=== PATIENT | male | born 1935 | race Caucasian/White ===

== ENCOUNTER 2017-01-24 09:02 | Emergency (ER) | payer OTHER, MEDICAID ==
[~2017-01-24] VITALS: Ht 172.7 cm; Wt 79.4 kg
[2017-01-24] MEDS ORDERED: HYDR-4663 PO (09:50)
[2017-01-24] MEDS ORDERED: TRAZ50TA2 PO (09:50)
[2017-01-24] MEDS ORDERED: ATOR10TA PO (09:50)
[2017-01-24 09:59] LABS: Basophils # (auto) 0 uL; Basophils % (auto) 0.1 % (0.0-2.0); CONDITION Y; Eosinophils # (auto) 0.4 uL; Eosinophils % (auto) 5.1 % (0.0-7.0); Hematocrit 42.7 % (41.0-53.0); Hemoglobin 14.2 g/dL (13.5-17.5); Lymphocytes # (auto) 1.3 uL; Lymphocytes % (auto) 15.8 % (10.0-50.0); Mean Corpuscular Hemoglobin 30.2 pg (28.0-32.0); Mean Corpuscular Hgb Conc. 33.3 g/dL (32.0-36.0); Mean Corpuscular Volume 90.7 fL (80.0-100.0); Mean Platelet Volume 7.4 fL (7.4-10.4); Monocytes # (auto) 0.6 uL; Monocytes % (auto) 7.2 % (0.0-12.0); Neutrophils # (auto) 5.9 uL; Neutrophils % (auto) 71.8 % (37.0-80.0); Platelet Count (auto) 375 10^3/uL (140-450); Red Cell Distribution Width 14.5 % (11.6-16.0); White Blood Cell 8.2 10^3/uL (4.4-10.8)
[2017-01-24 10:18] LABS: Albumin 3.7 g/dL (3.4-5.0); Alkaline Phosphatase 98 U/L (45-117); Anion Gap 7 (5-15); Aspartate Aminotransferase 10 U/L (15-37); Bilirubin, Total 1.2 mg/dL (0.2-1.0); Blood Urea Nitrogen 20 mg/dL (7-18); Calcium 9.3 mg/dL (8.5-10.1); Carbon Dioxide 28 mmol/L (21-32); Chloride 105 mmol/L (98-107); GFR African American 103 mL/min; GFR Non-African American 85 mL/min; Glucose 150 mg/dL (74-106); Magnesium 2.6 mg/dL (1.6-2.6); Potassium 3.9 mmol/L (3.5-5.1); Sodium 140 mmol/L (136-145); Total Protein 7.4 g/dL (6.4-8.2)
[2017-01-24] MEDS ORDERED: cefTRIAXone 1GM/50ML D5W 50 ML IV ONE (10:30)
[2017-01-24] MEDS ORDERED: AZITHROMYCIN 500MG/D5W 250ML 250 ML IV ONE (10:30)
[2017-01-24 10:38] LABS: B-Type Natriuretic Peptide 17.44 pg/mL (0-100)
[2017-01-24 10:45] LABS: Temperature: 23.3 C (20.0-25.0)
[2017-01-24 11:05] LABS: Urine Bilirubin Negative (Negative); Urine Blood Negative /uL (Negative); Urine Color Yellow (Yellow); Urine Glucose Normal (Normal); Urine Ketone Negative (Negative); Urine Mucus FEW (None Seen); Urine Nitrite Negative (Negative); Urine RBC 1 /hpf (0 - 3); Urine Squamous Epithelial Cell FEW /hpf (<5)
[2017-01-24] MEDS ORDERED: methylPREDNISolone SOD SUCC 125 MG/2 ML VL IV ONE (12:00)
[2017-01-24 14:21] VITALS: BP 113/70
== END 2017-01-24 15:00 | disposition short-term general hospital (02) ==
LOC: ER 09:02 → EDBD 09:02 → ER 15:00
DX: J18.9 Pneumonia, unspecified organism (principal); R53.1 Weakness; J44.9 Chronic obstructive pulmonary disease, unspecified; E11.9 Type 2 diabetes mellitus without complications; E78.5 Hyperlipidemia, unspecified; I10 Essential (primary) hypertension; Z90.49 Acquired absence of other specified parts of digestive tract
CPT/HCPCS: 36415; 71010; 80053; 81001; 83605; 83735; 83880; 84484; 85025; 93005; 94761; 96365; 96366; 96367; 96375; 99285; J0456; J0696; J2930

== ENCOUNTER 2017-02-06 20:17 | Observation (INO) | payer MEDICAID, OTHER ==
[~2017-02-06] VITALS: Ht 177.8 cm; Wt 77.1 kg
[~2017-02-06 20:17] MED LIST: ATOR10TA PO; HYDR-4663 PO; TRAZ50TA2 PO
[2017-02-06] MEDS ORDERED: methylPREDNISolone SOD SUCC 125 MG/2 ML VL ONE (20:20)
[2017-02-06] MEDS ORDERED: methylPREDNISolone SOD SUCC 125 MG/2 ML VL IV ONE (20:30)
[2017-02-06] MEDS ORDERED: cefTRIAXone 1GM/50ML D5W 50 ML IV ONE (20:45)
[2017-02-06 21:07] LABS: Allen Test Yes; Base Excess 3.2 mmol/L (-2.0-2.0); Blood 02Sat 94.6 % (96-100); Blood COHb 0.3 % (0.5-1.5); Blood MetHb 0.3 % (0.0-1.5); HCO3 28.1 mmol/L (22-26.0); HHb 5.4 % (0.0-5.0); MODE NASAL CANNULA; PCO2 43.8 mmHg (35.0-45.0); PCO2(T) 43.8 mmHg (35.0-45.0); PO2 75.7 mmHg (80.0-100.0); PO2(T) 75.7 mmHg (80.0-100.0); Sample Type Arterial; pH 7.425 (7.350-7.450)
[2017-02-06 21:36] LABS: Basophils # (auto) 0 uL; Basophils % (auto) 0.4 % (0.0-2.0); Eosinophils # (auto) 0.9 uL; Eosinophils % (auto) 9.5 % (0.0-7.0); Hematocrit 40.4 % (41.0-53.0); Hemoglobin 13.8 g/dL (13.5-17.5); Lymphocytes # (auto) 1.6 uL; Lymphocytes % (auto) 16.9 % (10.0-50.0); Mean Corpuscular Hemoglobin 30.7 pg (28.0-32.0); Mean Corpuscular Volume 90.2 fL (80.0-100.0); Mean Platelet Volume 7.5 fL (7.4-10.4); Monocytes # (auto) 0.6 uL; Monocytes % (auto) 6.4 % (0.0-12.0); Neutrophils # (auto) 6.2 uL; Neutrophils % (auto) 66.8 % (37.0-80.0); Platelet Count (auto) 299 10^3/uL (140-450); Red Cell Distribution Width 14.1 % (11.6-16.0); White Blood Cell 9.3 10^3/uL (4.4-10.8)
[2017-02-06 21:43] LABS: B-Type Natriuretic Peptide 26.1 pg/mL (0-100); Temperature: 22.2 C (20.0-25.0)
[2017-02-06 22:03] LABS: Albumin 3.5 g/dL (3.4-5.0); Alkaline Phosphatase 93 U/L (45-117); Anion Gap 8 (5-15); Aspartate Aminotransferase 10 U/L (15-37); BUN/Creatinine Ratio 14.9; Bilirubin, Total 0.9 mg/dL (0.2-1.0); Blood Urea Nitrogen 13 mg/dL (7-18); Carbon Dioxide 29 mmol/L (21-32); Chloride 104 mmol/L (98-107); GFR African American 109 mL/min; GFR Non-African American 90 mL/min; Glucose 166 mg/dL (74-106); Magnesium 2.5 mg/dL (1.6-2.6); Potassium 3.9 mmol/L (3.5-5.1); Sodium 141 mmol/L (136-145)
[2017-02-07 00:39] VITALS: BP 114/74
== END 2017-02-07 20:39 | disposition home or self-care (01) | DRG 192 ==
LOC: EDBD 20:17 → ER 20:20 → OVERFLOW 20:39 → ER 02-07 01:29
PROVIDERS: ADMIT Family Medicine; ATTEND Family Medicine
DX: J44.1 Chronic obstructive pulmonary disease with (acute) exacerbation (principal); I10 Essential (primary) hypertension; Z82.49 Family history of ischemic heart disease and other diseases of the circulatory system; F17.210 Nicotine dependence, cigarettes, uncomplicated
CPT/HCPCS: 36415; 36600; 71010; 80053; 82805; 83605; 83735; 83880; 84484; 85025; 87040; 93005; 96365; 96366; 96375; 99285; G0378; J0696; J2930

== ENCOUNTER 2017-02-15 07:05 | Emergency (ER) | payer OTHER ==
[~2017-02-15] VITALS: Ht 182.9 cm; Wt 86.2 kg
[2017-02-15] MEDS ORDERED: methylPREDNISolone SOD SUCC 125 MG/2 ML VL IV ONE (07:15)
[2017-02-15 07:19] VITALS: BP 134/92
[2017-02-15] MEDS ORDERED: ALBUTEROL SULF 2.5 MG/0.5ML(0.5%) NEB SOLN NEB ONE (07:30)
[2017-02-15] MEDS ORDERED: IPRATROPIUM BROM 0.5 MG/2.5ML INH SOL NEB ONE (07:30)
[2017-02-15 07:39] LABS: Basophils # (auto) 0.1 uL; Basophils % (auto) 0.6 % (0.0-2.0); Eosinophils # (auto) 1.1 uL; Eosinophils % (auto) 12.5 % (0.0-7.0); Hematocrit 43.4 % (41.0-53.0); Hemoglobin 14.5 g/dL (13.5-17.5); Lymphocytes # (auto) 2.1 uL; Lymphocytes % (auto) 23.7 % (10.0-50.0); Mean Corpuscular Hemoglobin 30.2 pg (28.0-32.0); Mean Corpuscular Hgb Conc. 33.4 g/dL (32.0-36.0); Mean Corpuscular Volume 90.5 fL (80.0-100.0); Mean Platelet Volume 7.3 fL (6.9-10.8); Monocytes # (auto) 0.7 uL; Monocytes % (auto) 8.3 % (0.0-12.0); Neutrophils # (auto) 4.8 uL; Neutrophils % (auto) 54.9 % (37.0-80.0); Nucleated Red Blood Cells % 0.1 %; Platelet Count (auto) 312 10^3/uL (140-450); Red Cell Distribution Width 14.2 % (11.8-14.3); White Blood Cell 8.8 10^3/uL (4.4-10.8)
[2017-02-15 07:48] LABS: Allen Test Modified; Base Excess 1.9 mmol/L (-2.0-2.0); Blood 02Sat 98.9 % (96-100); Blood COHb 0.4 % (0.5-1.5); Blood MetHb 0.4 % (0.0-1.5); HHb 1.1 % (0.0-5.0); MODE MASK - BIPAP; O2Hb 98.1 % (94.0-97.0); PCO2 43.8 mmHg (35.0-45.0); PCO2(T) 42.3 mmHg (35.0-45.0); PO2 260.5 mmHg (80.0-100.0); PO2(T) 256.7 mmHg (80.0-100.0); Pressure Support 7; Sample Type Arterial; Spont Vt 650; pH 7.407 (7.350-7.450)
[2017-02-15 07:59] LABS: Albumin 3.6 g/dL (3.4-5.0); Anion Gap 6 (5-15); Aspartate Aminotransferase 15 U/L (15-37); BUN/Creatinine Ratio 14.1; Blood Urea Nitrogen 13 mg/dL (7-18); Calcium 8.4 mg/dL (8.5-10.1); Carbon Dioxide 27 mmol/L (21-32); Chloride 108 mmol/L (98-107); GFR African American 102 mL/min; GFR Non-African American 84 mL/min; Glucose 137 mg/dL (74-106); Magnesium 2.6 mg/dL (1.6-2.6); Potassium 4.3 mmol/L (3.5-5.1); Sodium 141 mmol/L (136-145)
[2017-02-15 08:02] LABS: Alkaline Phosphatase 98 U/L (45-117); Bilirubin, Total 1.4 mg/dL (0.2-1.0); Total Protein 7.2 g/dL (6.4-8.2)
[2017-02-15 08:12] LABS: B-Type Natriuretic Peptide 24.2 pg/mL (0-100)
[2017-02-15 08:17] LABS: Temperature: 23.7 C (20.0-25.0)
[2017-02-15 08:42] LABS: INR 1.05 (0.9-1.15); Partial Thromboplastin Time 26.5 sec (22.64-33.71); Prothrombin Time 11.5 sec (9.37-12.3)
[2017-02-15 11:35] VITALS: BP 125/77
== END 2017-02-15 08:39 | disposition critical access hospital (66) ==
LOC: EDBD 07:05 → ER 07:05
DX: J44.1 Chronic obstructive pulmonary disease with (acute) exacerbation (principal); R06.00 Dyspnea, unspecified; I10 Essential (primary) hypertension; E11.9 Type 2 diabetes mellitus without complications; E78.5 Hyperlipidemia, unspecified; Z87.891 Personal history of nicotine dependence
CPT/HCPCS: 36415; 36600; 71010; 80053; 82805; 83605; 83735; 83880; 84484; 85025; 85610; 85730; 87040; 93005; 94640; 94660; 96374; 99291

== ENCOUNTER 2017-03-11 02:53 | Emergency (ER) | payer OTHER ==
[~2017-03-11] VITALS: Ht 172.7 cm; Wt 70.3 kg
[2017-03-11] MEDS ORDERED: IPRATROPIUM BROM 0.5 MG/2.5ML INH SOL NEB ONE (04:00)
[2017-03-11] MEDS ORDERED: ALBUTEROL SULF 2.5 MG/0.5ML(0.5%) NEB SOLN NEB ONE (04:00)
[2017-03-11] MEDS ORDERED: methylPREDNISolone SOD SUCC 125 MG/2 ML VL IV ONE (04:00)
[2017-03-11 04:25] LABS: Basophils # (auto) 0 uL; Basophils % (auto) 0.4 % (0.0-2.0); Eosinophils # (auto) 0.8 uL; Eosinophils % (auto) 10.1 % (0.0-7.0); Hematocrit 41.1 % (41.0-53.0); Hemoglobin 13.8 g/dL (13.5-17.5); Lymphocytes # (auto) 1.6 uL; Lymphocytes % (auto) 19.6 % (10.0-50.0); Mean Corpuscular Hemoglobin 30.3 pg (28.0-32.0); Mean Corpuscular Hgb Conc. 33.7 g/dL (32.0-36.0); Mean Corpuscular Volume 89.9 fL (80.0-100.0); Mean Platelet Volume 7.5 fL (6.9-10.8); Monocytes # (auto) 0.7 uL; Monocytes % (auto) 8.5 % (0.0-12.0); Neutrophils # (auto) 4.9 uL; Neutrophils % (auto) 61.4 % (37.0-80.0); Nucleated Red Blood Cells % 0.1 %; Platelet Count (auto) 335 10^3/uL (140-450); Red Cell Distribution Width 13.8 % (11.8-14.3); White Blood Cell 7.9 10^3/uL (4.4-10.8)
[2017-03-11 04:39] LABS: Albumin 3.6 g/dL (3.4-5.0); Anion Gap 8 (5-15); Aspartate Aminotransferase 13 U/L (15-37); BUN/Creatinine Ratio 25.3; Blood Urea Nitrogen 24 mg/dL (7-18); Calcium 8.9 mg/dL (8.5-10.1); Carbon Dioxide 28 mmol/L (21-32); Chloride 109 mmol/L (98-107); GFR African American 98 mL/min; GFR Non-African American 81 mL/min; Glucose 132 mg/dL (74-106); Magnesium 2.3 mg/dL (1.6-2.6); Potassium 3.6 mmol/L (3.5-5.1); Sodium 145 mmol/L (136-145)
[2017-03-11 04:42] LABS: Alkaline Phosphatase 97 U/L (45-117); Bilirubin, Total 0.9 mg/dL (0.2-1.0); INR 1.05 (0.9-1.15); Partial Thromboplastin Time 26.9 sec (22.64-33.71); Prothrombin Time 11.4 sec (9.37-12.3); Total Protein 6.9 g/dL (6.4-8.2)
[2017-03-11 05:17] LABS: B-Type Natriuretic Peptide 18.17 pg/mL (0-100)
[2017-03-11 05:24] LABS: Temperature: 23.3 C (20.0-25.0)
[2017-03-11] MEDS ORDERED: IOHEXOL 350 MG/ML 100ML IJ ONE (07:59)
[2017-03-11 09:00] VITALS: BP 147/85
== END 2017-03-11 09:07 | disposition short-term general hospital (02) ==
LOC: EDBD 02:53 → ER 02:55
DX: J44.1 Chronic obstructive pulmonary disease with (acute) exacerbation (principal); R06.03 Acute respiratory distress; R79.1 Abnormal coagulation profile; E11.9 Type 2 diabetes mellitus without complications; E78.5 Hyperlipidemia, unspecified; I10 Essential (primary) hypertension; Z87.891 Personal history of nicotine dependence
CPT/HCPCS: 36415; 71010; 71275; 80053; 83735; 83880; 84443; 84484; 85025; 85379; 85610; 85730; 93005; 94640; 96374; 99291; J2930; Q9967

== ENCOUNTER 2018-03-09 07:36 | Emergency (ER) | payer OTHER, MEDICAID ==
[~2018-03-09] VITALS: Ht 170.2 cm; Wt 63.5 kg
[~2018-03-09 07:36] MED LIST changes: -HYDR-4663 PO; +HYDR-4683 PO
[2018-03-09] MEDS ORDERED: IPRATROPIUM BROM 0.5 MG/2.5ML INH SOL NEB ONE (08:15)
[2018-03-09] MEDS ORDERED: methylPREDNISolone SOD SUCC 125 MG/2 ML VL IV ONE (08:15)
[2018-03-09] MEDS ORDERED: ALBUTEROL SULF 2.5 MG/0.5ML(0.5%) NEB SOLN NEB ONE (08:15)
[2018-03-09 08:39] LABS: Hematocrit 43.2 % (41.0-53.0); Hemoglobin 14.1 g/dL (13.5-17.5); Mean Corpuscular Hemoglobin 29.3 pg (28.0-32.0); Mean Corpuscular Hgb Conc. 32.6 g/dL (32.0-36.0); Platelet Count (auto) 307 10^3/uL (140-450); Red Cell Distribution Width 14.5 % (11.8-14.3); White Blood Cell 7.5 10^3/uL (4.4-10.8)
[2018-03-09 09:01] LABS: Albumin 3.6 g/dL (3.4-5.0); Anion Gap 9 (5-15); BUN/Creatinine Ratio 23.2; Blood Urea Nitrogen 22 mg/dL (7-18); Calcium 8.8 mg/dL (8.5-10.1); Carbon Dioxide 27 mmol/L (21-32); Chloride 108 mmol/L (98-107); GFR African American 98 mL/min; GFR Non-African American 81 mL/min; Glucose 143 mg/dL (74-106); Potassium 3.7 mmol/L (3.5-5.1); Sodium 144 mmol/L (136-145)
[2018-03-09 09:05] LABS: Basophils % (manual) 0 (0.0-2.0); Blast Cells 0; Metamyelocytes % 0; Myelocytes % 0; Promyelocytes % 0; Reactive Lymphocytes 0
[2018-03-09 09:06] LABS: Alanine Aminotransferase 19 U/L (16-61); Alkaline Phosphatase 91 U/L (45-117); Aspartate Aminotransferase 13 U/L (15-37); Total Protein 7.4 g/dL (6.4-8.2)
[2018-03-09 09:17] LABS: Band Neutrophils % (manual) 1; Eosinophils % (manual) 15 (0-7); Lymphocytes % (manual) 25 (10.0-50.0); Monocytes % (manual) 6 (0-12)
[2018-03-09] MEDS ORDERED: HYDROcodone-ACET 5/325MG TAB PO ONE (10:00)
[2018-03-09 13:43] VITALS: BP 122/79
== END 2018-03-09 14:55 | disposition short-term general hospital (02) ==
LOC: ER 07:36
DX: J44.1 Chronic obstructive pulmonary disease with (acute) exacerbation (principal); E11.9 Type 2 diabetes mellitus without complications; E78.5 Hyperlipidemia, unspecified; I10 Essential (primary) hypertension; Z90.49 Acquired absence of other specified parts of digestive tract; Z87.891 Personal history of nicotine dependence
CPT/HCPCS: 36415; 71045; 80053; 84484; 85007; 85027; 93005; 94640; 96374; 99291; J2930; J7611; J7644

== ENCOUNTER 2018-05-02 18:02 | Inpatient (IN) | payer OTHER, MEDICAID ==
[~2018-05-02] VITALS: Ht 175.3 cm; Wt 73.7 kg
[2018-05-02] MEDS ORDERED: SODIUM CHLORIDE 0.9% 1,000 ML IV ONE ×2 (18:17→20:45)
[2018-05-02] MEDS ORDERED: IPRATROPIUM BROM 0.5 MG/2.5ML INH SOL HHN ONE (18:30)
[2018-05-02] MEDS ORDERED: methylPREDNISolone SOD SUCC 125 MG/2 ML VL IV ONE (18:30)
[2018-05-02] MEDS ORDERED: ALBUTEROL SULF 2.5 MG/0.5ML(0.5%) NEB SOLN HHN ONE (18:30)
[2018-05-02 19:36] LABS: Basophils # (auto) 0 uL; Basophils % (auto) 0.3 % (0.0-2.0); Eosinophils # (auto) 0.9 uL; Hematocrit 42.1 % (41.0-53.0); Hemoglobin 13.8 g/dL (13.5-17.5); Lymphocytes # (auto) 0.9 uL; Lymphocytes % (auto) 11.4 % (10.0-50.0); Mean Corpuscular Hemoglobin 29.5 pg (28.0-32.0); Mean Corpuscular Hgb Conc. 32.8 g/dL (32.0-36.0); Mean Corpuscular Volume 90.2 fL (80.0-100.0); Monocytes # (auto) 0.6 uL; Monocytes % (auto) 7.4 % (0.0-12.0); Neutrophils # (auto) 5.8 uL; Neutrophils % (auto) 69.9 % (37.0-80.0); Platelet Count (auto) 307 10^3/uL (140-450); Red Blood Cells 4.67 10^6/uL (4.5-5.90); Red Cell Distribution Width 14.3 % (11.8-14.3); White Blood Cell 8.3 10^3/uL (4.4-10.8)
[2018-05-02 19:47] LABS: Lactic Acid w/Reflex 2.1 mmol/L (0.4-2.0)
[2018-05-02 19:53] LABS: Alanine Aminotransferase 21 U/L (16-61); Albumin 3.5 g/dL (3.4-5.0); Anion Gap 5 (5-15); Aspartate Aminotransferase 13 U/L (15-37); BUN/Creatinine Ratio 18.9; Blood Urea Nitrogen 17 mg/dL (7-18); Calcium 8.8 mg/dL (8.5-10.1); Carbon Dioxide 29 mmol/L (21-32); Chloride 107 mmol/L (98-107); GFR African American 104 mL/min; GFR Non-African American 86 mL/min; Glucose 164 mg/dL (74-106); Potassium 4.4 mmol/L (3.5-5.1); Sodium 141 mmol/L (136-145)
[2018-05-02 19:57] LABS: Alkaline Phosphatase 102 U/L (45-117); Bilirubin, Total 0.8 mg/dL (0.2-1.0); Total Protein 7.1 g/dL (6.4-8.2)
[2018-05-03] VITALS (8 sets, daily range): BP systolic 108–140; BP diastolic 58–79
[2018-05-03] MEDS ORDERED: TEMAZEPAM 15 MG CAP PO PRN (02:15)
[2018-05-03] MEDS ORDERED: HYDROcodone-ACET 5/325MG TAB PO PRN (02:15)
[2018-05-03] MEDS ORDERED: ACETAMINOPHEN 325 MG TAB PO PRN (02:15)
[2018-05-03] MEDS ORDERED: NITROGLYCERIN 0.4 MG SL TAB SL PRN (02:15)
[2018-05-03] MEDS ORDERED: DEXTROSE (50%) 50ML SYRG IV PRN (02:15)
[2018-05-03] MEDS ORDERED: ONDANSETRON HCL 4 MG/2 ML VIAL IV PRN (02:15)
[2018-05-03] MEDS ORDERED: MORPHINE SULFATE 4 MG/ML SYR/VIAL IV PRN (02:15)
[2018-05-03] MEDS ORDERED: IOHEXOL 350 MG/ML 100ML IJ ONE (02:42)
[2018-05-03] MEDS: ALBUTEROL SULF 2.5 MG/0.5ML(0.5%) NEB SOLN NEB PRN ×3 (02:46→10:25)
[2018-05-03] MEDS: IPRATROPIUM BROM 0.5 MG/2.5ML INH SOL NEB PRN ×3 (02:46→10:25)
[2018-05-03] MEDS ORDERED: cefTRIAXone 1GM/50ML D5W 50 ML IV ONE (03:00)
[2018-05-03] MEDS: ACCU-CHEK COMFORT CURVE STRIP VI SCH ×4 (06:00→23:54)
[2018-05-03] MEDS: InsuLIN REG 1unit/0.01ml Soln (100units/ml) SC SCH ×4 (07:12→23:58)
[2018-05-03] MEDS: ENOXAPARIN SOD 40 MG/0.4 ML SYRINGE SC SCH (10:13)
[2018-05-03] MEDS: FAMOTIDINE 20 MG TAB PO SCH ×2 (10:13→21:29)
[2018-05-03] MEDS ORDERED: AZITHROMYCIN 500MG/ 250ML 250 ML IV ONE (11:45)
[2018-05-03] MEDS: methylPREDNISolone SOD SUCC 40 MG/ML VL IV SCH ×3 (13:01→23:53)
[2018-05-03] MEDS: ALBUTEROL SULF 2.5 MG/0.5ML(0.5%) NEB SOLN NEB SCH (18:30)
[2018-05-03] MEDS: IPRATROPIUM BROM 0.5 MG/2.5ML INH SOL NEB SCH (18:30)
[2018-05-03] MEDS ORDERED: MONTELUKAST SODIUM 10 MG TAB PO SCH (22:00)
[2018-05-03] MEDS ORDERED: ATORVASTATIN 20 MG TAB PO SCH (22:00)
[2018-05-04] MEDS: IPRATROPIUM BROM 0.5 MG/2.5ML INH SOL NEB SCH ×3 (01:58→12:04)
[2018-05-04] MEDS: ALBUTEROL SULF 2.5 MG/0.5ML(0.5%) NEB SOLN NEB SCH ×3 (01:58→12:04)
[2018-05-04] MEDS ORDERED: cefTRIAXone 1GM/50ML D5W 50 ML IV SCH (03:00)
[2018-05-04 05:09] VITALS: BP 104/52
[2018-05-04] MEDS: methylPREDNISolone SOD SUCC 40 MG/ML VL IV SCH (06:37)
[2018-05-04] MEDS: InsuLIN REG 1unit/0.01ml Soln (100units/ml) SC SCH (06:38)
[2018-05-04] MEDS: ACCU-CHEK COMFORT CURVE STRIP VI SCH (06:38)
[2018-05-04 07:03] LABS: Basophils # (auto) 0 uL; Basophils % (auto) 0.1 % (0.0-2.0); Eosinophils # (auto) 0 uL; Hematocrit 38.6 % (41.0-53.0); Hemoglobin 12.7 g/dL (13.5-17.5); Lymphocytes # (auto) 0.6 uL; Mean Corpuscular Hemoglobin 29.5 pg (28.0-32.0); Mean Corpuscular Volume 89.4 fL (80.0-100.0); Monocytes # (auto) 0.2 uL; Monocytes % (auto) 1.9 % (0.0-12.0); Neutrophils # (auto) 10.9 uL; Platelet Count (auto) 311 10^3/uL (140-450); Red Blood Cells 4.32 10^6/uL (4.5-5.90); Red Cell Distribution Width 13.8 % (11.8-14.3); White Blood Cell 11.7 10^3/uL (4.4-10.8)
[2018-05-04 07:19] LABS: Potassium 4.1 mmol/L (3.5-5.1)
[2018-05-04 07:27] LABS: Albumin 3.1 g/dL (3.4-5.0); BUN/Creatinine Ratio 26.6; Bilirubin, Total 0.7 mg/dL (0.2-1.0); Total Protein 6.3 g/dL (6.4-8.2)
[2018-05-04 08:31] VITALS: BP 132/71
[2018-05-04] MEDS ORDERED: LEVOFLOXACIN 500 MG TAB PO SCH (10:00)
[2018-05-04] MEDS ORDERED: AZITHROMYCIN 500MG/ 250ML 250 ML IV SCH (10:00)
[2018-05-04] MEDS ORDERED: Ensure Enlive Chocolate 8oz Bottle PO SCH (10:00)
[2018-05-04] MEDS: ENOXAPARIN SOD 40 MG/0.4 ML SYRINGE SC SCH (10:03)
[2018-05-04] MEDS: FAMOTIDINE 20 MG TAB PO SCH (10:03)
[2018-05-04 12:20] VITALS: BP 130/77
[2018-05-04 13:26] VITALS: BP 132/71
[2018-05-04] MEDS ORDERED: AZIT500T4 PO (13:35)
[2018-05-04] MEDS ORDERED: PRED1PAK10 PO (13:35)
== END 2018-05-04 14:35 | disposition home or self-care (01) | DRG 189 ==
LOC: EDUNIT# 18:02 → EDBD 18:02 → ER 18:11 → TELE 05-03 02:09 → TELE-WESTW 05-03 04:00
PROVIDERS: ADMIT Nurse Practitioner; ATTEND Family Medicine
PROC: 5A09357 Assistance with Respiratory Ventilation, Less than 24 Consecutive Hours, Continuous Positive Airway Pressure (ICD-10-PCS; principal; 2018-05-03)
DX: J96.21 Acute and chronic respiratory failure with hypoxia (principal); J44.1 Chronic obstructive pulmonary disease with (acute) exacerbation; J44.0 Chronic obstructive pulmonary disease with (acute) lower respiratory infection; E11.9 Type 2 diabetes mellitus without complications; E78.00 Pure hypercholesterolemia, unspecified; E78.5 Hyperlipidemia, unspecified; F41.9 Anxiety disorder, unspecified; I10 Essential (primary) hypertension; J01.00 Acute maxillary sinusitis, unspecified; J20.9 Acute bronchitis, unspecified; Z87.891 Personal history of nicotine dependence; Z99.81 Dependence on supplemental oxygen; Z90.49 Acquired absence of other specified parts of digestive tract
CPT/HCPCS: 36415; 36600; 71045; 71275; 80053; 82805; 82962; 83605; 83880; 84484; 85025; 85379; 87040; 94640; 94644; 94660; 94761; 96361; 96365; 96367; 96375; 99291; G0378; J1815

== ENCOUNTER 2018-08-23 08:38 | Inpatient (IN) | payer OTHER, MEDICAID ==
[~2018-08-23] VITALS: Ht 172.7 cm; Wt 66.5 kg
[~2018-08-23 08:38] MED LIST changes: +AZIT500T4 PO; +PRED1PAK10 PO
[2018-08-23] MEDS ORDERED: SODIUM CHLORIDE 0.9% 1,000 ML IV ONE (10:17)
[2018-08-23] MEDS ORDERED: IPRATROPIUM BROM 0.5 MG/2.5ML INH SOL NEB ONE ×2 (10:30→17:45)
[2018-08-23] MEDS ORDERED: ALBUTEROL SULF 2.5 MG/0.5ML(0.5%) NEB SOLN NEB ONE ×2 (10:30→17:45)
[2018-08-23] MEDS ORDERED: methylPREDNISolone SOD SUCC 125 MG/2 ML VL IV ONE (10:30)
[2018-08-23 10:31] LABS: Basophils # (auto) 0 uL; Basophils % (auto) 0.4 % (0.0-2.0); Eosinophils # (auto) 0.9 uL; Eosinophils % (auto) 13.2 % (0.0-7.0); Hematocrit 43.1 % (41.0-53.0); Lymphocytes # (auto) 1.1 uL; Lymphocytes % (auto) 16.1 % (10.0-50.0); Mean Corpuscular Hemoglobin 29.2 pg (28.0-32.0); Mean Corpuscular Hgb Conc. 32.6 g/dL (32.0-36.0); Mean Corpuscular Volume 89.6 fL (80.0-100.0); Monocytes # (auto) 0.6 uL; Neutrophils % (auto) 61.3 % (37.0-80.0); Platelet Count (auto) 283 10^3/uL (140-450); Red Blood Cells 4.81 10^6/uL (4.5-5.90); Red Cell Distribution Width 14.3 % (11.8-14.3); White Blood Cell 6.5 10^3/uL (4.4-10.8)
[2018-08-23 10:46] LABS: Albumin 3.7 g/dL (3.4-5.0); Calcium 9.4 mg/dL (8.5-10.1); Magnesium 2.4 mg/dL (1.6-2.6); Potassium 3.7 mmol/L (3.5-5.1)
[2018-08-23 10:56] LABS: Bilirubin, Total 1.2 mg/dL (0.2-1.0); Total Protein 7.2 g/dL (6.4-8.2)
[2018-08-23 13:54] LABS: Urine WBC None Seen /hpf (0 - 3)
[2018-08-23 14:30] LABS: Urine Bacteria NONE SEEN /hpf (None Seen); Urine Blood Negative /uL (Negative); Urine Mucus FEW (None Seen); Urine Specific Gravity 1.025 (1.001-1.035)
[2018-08-23] MEDS ORDERED: AZITHROMYCIN 500MG/ 250ML 250 ML IV ONE (17:45)
[2018-08-23] MEDS ORDERED: ACETAMINOPHEN 500 MG TAB PO PRN (20:00)
[2018-08-23] MEDS ORDERED: MORPHINE SULF INJ 2 MG/ML SYRINGE 1ML IV PRN ×2 (20:00)
[2018-08-23] MEDS ORDERED: HYDROcodone-ACET 7.5/325MG TAB PO PRN (20:00)
[2018-08-23] MEDS ORDERED: ONDANSETRON HCL 4 MG/2 ML VIAL IV PRN (20:00)
[2018-08-23] MEDS ORDERED: NITROGLYCERIN 0.4 MG SL TAB SL PRN (20:00)
[2018-08-23 20:44] VITALS: BP 113/64
--- NOTE | 2018-08-23 21:00 | NUR ---
OPENING NOTE RECEIVED PATIENT FROM ER. PATIENT SHOWING NO SIGN OF DISTRESS, SHORTNESS OF BREATH, AND PATIENT DENIES ANY PAIN AT THIS TIME. PATIENT EDUCATED ON PLAN OF CARE FOR THE NIGHT AND PATIENT VERBALIZED UNDERSTANDING. PATIENT HOOKED ONTO 3L NC. BED LOWERED, CALL LIGHT WITHIN REACH, AND PATIENT WILL BE ROUNDED ON EVERY HOUR AND NEEDED.
[2018-08-23 21:30] VITALS: BP 139/69
[2018-08-23] MEDS: methylPREDNISolone SOD SUCC 125 MG/2 ML VL IV SCH (21:41)
[2018-08-23] MEDS: ATORVASTATIN 20 MG TAB PO SCH (21:41)
[2018-08-23 22:00] VITALS: BP 139/69
[2018-08-24] MEDS ORDERED: ALBUAER3 IN (00:11)
[2018-08-24] MEDS ORDERED: FLUT250M2 IN (00:11)
[2018-08-24] MEDS ORDERED: HYDR-392 PO (00:11)
[2018-08-24] MEDS: IPRATROPIUM BROM 0.5 MG/2.5ML INH SOL NEB SCH ×3 (00:22→11:33)
[2018-08-24] MEDS: ALBUTEROL SULF 2.5 MG/0.5ML(0.5%) NEB SOLN NEB SCH ×3 (00:22→11:34)
[2018-08-24] MEDS: BUDESONIDE (INHALATION) 0.5 MG/2 ML NEB NEB SCH ×3 (00:22→19:07)
[2018-08-24 04:58] VITALS: BP 106/64
--- NOTE | 2018-08-24 05:40 | NUR ---
RADIOLOGY AT BEDSIDE FOR CXRP.
[2018-08-24 06:30] LABS: Basophils # (auto) 0 uL; Eosinophils # (auto) 0 uL; Hematocrit 39.9 % (41.0-53.0); Hemoglobin 13.1 g/dL (13.5-17.5); Lymphocytes # (auto) 0.4 uL; Lymphocytes % (auto) 6.8 % (10.0-50.0); Mean Corpuscular Hemoglobin 29.3 pg (28.0-32.0); Mean Corpuscular Hgb Conc. 32.8 g/dL (32.0-36.0); Mean Corpuscular Volume 89.4 fL (80.0-100.0); Monocytes # (auto) 0.1 uL; Monocytes % (auto) 1.5 % (0.0-12.0); Neutrophils # (auto) 4.9 uL; Neutrophils % (auto) 91.7 % (37.0-80.0); Platelet Count (auto) 273 10^3/uL (140-450); Red Blood Cells 4.46 10^6/uL (4.5-5.90); Red Cell Distribution Width 13.9 % (11.8-14.3); White Blood Cell 5.4 10^3/uL (4.4-10.8)
--- NOTE | 2018-08-24 06:34 | NUR ---
MEDICATION TAKEN DOWN TO PHARMACY
[2018-08-24 06:40] LABS: BUN/Creatinine Ratio 23.9
[2018-08-24 09:00] VITALS: BP 116/62
[2018-08-24] MEDS: cefTRIAXone 1GM/50ML D5W 50 ML IV SCH (09:24)
[2018-08-24] MEDS: methylPREDNISolone SOD SUCC 125 MG/2 ML VL IV SCH ×2 (09:50→21:28)
[2018-08-24] MEDS: PANTOPRAZOLE 40 MG/10 ML VIAL IV SCH (09:50)
[2018-08-24] MEDS: AZITHROMYCIN 500MG/ 250ML 250 ML IV SCH (10:00)
--- NOTE | 2018-08-24 12:46 | NUR ---
PER DR RICO, PT DOES NOT WANT TO TRANSFER TO [facility]. SPOKE TO TITO MAZARIEGOS AT [facility] AND INFORMED
[2018-08-24 13:00] VITALS: BP 130/74
--- NOTE | 2018-08-24 13:00 | NUR ---
IV removal IV left AC DC'd with sterile technique, catheter fully intact. Pressure dressing applied to site. Patient tolerated procedure well. Discharged with aftercare instructions per MD. NOTE:
--- NOTE | 2018-08-24 13:05 | NUR ---
IV insertion IV access obtained, via clean sterile technique by inserting 20 gauge catheter at left foreqrm after 1 attempt. IV secured properly. No trauma to site. Patient tolerated procedure well.
[2018-08-24 17:00] VITALS: BP 130/73
--- NOTE | 2018-08-24 20:00 | NUR ---
OPENING NOTE RECEIVED REPORT FROM DAYSHIFT RN. ASSUMING ROLE OF CARE OF PATIENT AT THIS TIME. PATIENT SHOWING NO SIGN OF DISTRESS, SHORTNESS OF BREATH, AND PATIENT DENIES ANY PAIN AT THIS TIME. PATIENT EDUCATED ON PLAN OF CARE FOR THE NIGHT. PATIENT VERBALIZED UNDERSTANDING. BED LOWERED, CALL LIGHT WITHIN REACH, AND PATIENT WILL BE ROUNDED ON EVERY HOUR AND NEEDED.
[2018-08-24] MEDS: ATORVASTATIN 20 MG TAB PO SCH (21:28)
[2018-08-24 22:00] VITALS: BP 132/74
[2018-08-25 05:00] VITALS: BP 128/82
[2018-08-25] MEDS: IPRATROPIUM BROM 0.5 MG/2.5ML INH SOL NEB SCH ×3 (06:15→18:05)
[2018-08-25] MEDS: BUDESONIDE (INHALATION) 0.5 MG/2 ML NEB NEB SCH ×2 (06:15→18:05)
[2018-08-25] MEDS: ALBUTEROL SULF 2.5 MG/0.5ML(0.5%) NEB SOLN NEB SCH ×3 (06:15→18:05)
--- NOTE | 2018-08-25 08:00 | NUR ---
Opening Shift Note Assumed care of patient, awake and alert. No S/S of distress/SOB or pain. Instructed on POC and to call for assist PRN, will continue to monitor for changes Q1hr and PRN.
[2018-08-25 09:00] VITALS: BP 112/67
[2018-08-25] MEDS: PANTOPRAZOLE 40 MG/10 ML VIAL IV SCH (09:51)
[2018-08-25] MEDS: cefTRIAXone 1GM/50ML D5W 50 ML IV SCH (09:51)
[2018-08-25] MEDS: methylPREDNISolone SOD SUCC 125 MG/2 ML VL IV SCH ×2 (09:52→23:23)
[2018-08-25] MEDS: ENOXAPARIN SOD 40 MG/0.4 ML SYRINGE SC SCH (10:35)
[2018-08-25] MEDS: AZITHROMYCIN 500MG/ 250ML 250 ML IV SCH (11:48)
--- NOTE | 2018-08-25 12:03 | NUR ---
RT NOTE: PT C/O HEADACHE ONCE TX WAS OVER. ALL OTHER VITALS STABLE. WILL NOTIFY RN AND PASS ON IN REPORT. WILL CONTINUE TO MONITOR.
[2018-08-25 13:00] VITALS: BP_SYST 120; BP_SYST 130; BP_DIAS 71; BP_DIAS 83
--- NOTE | 2018-08-25 13:08 | NUR ---
CM - RE:PILGER CONTACTED WELFARE VISITOR KIKO REGARDING DOCTOR TRISHA REQUESTING AUTHORIZATION FOR PILGER. LEFT MESSAGE.
--- NOTE | 2018-08-25 14:19 | NUR ---
Nutrition Assessment/consult Notes Please see attached link for complete assessment Est. Needs based on BW [id number] kcal (25-30 kcal/kgBW), 66-79 gms pro (1.0-1.2 gm/kgBW). Will continue to monitor pertinent labs and reassess nutrient need prn. Addendum: 08/25/18 at [address] Amended: Links added.
--- NOTE | 2018-08-25 19:40 | NUR ---
Opening Shift Note Assumed care of patient, awake and alert. No S/S of distress/SOB or pain. Bed in lowest locked position, side rails up x2, call light within reach. Instructed on POC and to call for assist PRN, will continue to monitor for changes Q1hr and PRN.
[2018-08-25 22:00] VITALS: BP 124/74
--- NOTE | 2018-08-25 22:00 | NUR ---
Sleeping Pill Patient requesting sleeping pill, no orders noted at this time. Hospitalist paged, awaiting call back.
[2018-08-25] MEDS: ATORVASTATIN 20 MG TAB PO SCH (23:23)
--- NOTE | 2018-08-25 23:30 | NUR ---
Re: Sleeping Pill Informed patient no orders for sleeping pill and hospitalist had been paged. Patient said, "ah, forget about it then". No s/s of distress. Will continue to monitor.
[2018-08-26 05:00] VITALS: BP 112/66
[2018-08-26] MEDS: IPRATROPIUM BROM 0.5 MG/2.5ML INH SOL NEB SCH ×3 (06:57→18:01)
[2018-08-26] MEDS: BUDESONIDE (INHALATION) 0.5 MG/2 ML NEB NEB SCH ×2 (06:57→18:01)
[2018-08-26] MEDS: ALBUTEROL SULF 2.5 MG/0.5ML(0.5%) NEB SOLN NEB SCH ×3 (06:57→18:01)
--- NOTE | 2018-08-26 07:06 | NUR ---
Closing Note Patient lying in bed, eyes closed, respirations even and unlabored, appears asleep. No s/s of distress. Will continue to monitor.
[2018-08-26 07:09] LABS: Basophils # (auto) 0 uL; Eosinophils # (auto) 0 uL; Hematocrit 38.7 % (41.0-53.0); Hemoglobin 12.9 g/dL (13.5-17.5); Lymphocytes # (auto) 0.4 uL; Lymphocytes % (auto) 4.9 % (10.0-50.0); Mean Corpuscular Hemoglobin 29.3 pg (28.0-32.0); Mean Corpuscular Hgb Conc. 33.2 g/dL (32.0-36.0); Mean Corpuscular Volume 88.1 fL (80.0-100.0); Monocytes # (auto) 0.3 uL; Monocytes % (auto) 3.4 % (0.0-12.0); Neutrophils # (auto) 8.3 uL; Neutrophils % (auto) 91.7 % (37.0-80.0); Platelet Count (auto) 278 10^3/uL (140-450); Red Cell Distribution Width 13.8 % (11.8-14.3); White Blood Cell 9.1 10^3/uL (4.4-10.8)
--- NOTE | 2018-08-26 07:30 | NUR ---
Open Shift Note Received report on patient, awake and lying in bed. Patient shows no signs of distress at this time. Discussed POC with patient. Bed in lowest locked position, side rails up x2, and call light within reach. Will continue to monitor.
[2018-08-26 07:32] LABS: Calcium 8.8 mg/dL (8.5-10.1)
[2018-08-26 08:55] VITALS: BP 125/67
[2018-08-26] MEDS: PANTOPRAZOLE 40 MG/10 ML VIAL IV SCH (09:40)
[2018-08-26] MEDS: cefTRIAXone 1GM/50ML D5W 50 ML IV SCH (09:40)
[2018-08-26] MEDS: ENOXAPARIN SOD 40 MG/0.4 ML SYRINGE SC SCH (09:40)
[2018-08-26] MEDS: AZITHROMYCIN 500MG/ 250ML 250 ML IV SCH (09:41)
[2018-08-26] MEDS: methylPREDNISolone SOD SUCC 125 MG/2 ML VL IV SCH (09:41)
[2018-08-26 13:16] VITALS: BP 137/82
[2018-08-26 17:30] VITALS: BP 119/78
[2018-08-26] MEDS: Ensure Enlive Chocolate 8oz Bottle PO SCH (18:00)
[2018-08-26 18:01] VITALS: BP 119/78
--- NOTE | 2018-08-26 19:08 | NUR ---
End of Shift Endorsed care to NOC nurse. Patient shows no signs of distress at this time. Bed in lowest locked position, side rails up x2, and call light within reach.
[2018-08-26] MEDS: ATORVASTATIN 20 MG TAB PO SCH (21:40)
[2018-08-26 22:00] VITALS: BP 108/91
[2018-08-26] MEDS ORDERED: methylPREDNISolone SOD SUCC 40 MG/ML VL IV SCH (22:00)
[2018-08-27 05:00] VITALS: BP 99/54
[2018-08-27] MEDS: IPRATROPIUM BROM 0.5 MG/2.5ML INH SOL NEB SCH ×2 (06:29→11:24)
[2018-08-27] MEDS: ALBUTEROL SULF 2.5 MG/0.5ML(0.5%) NEB SOLN NEB SCH ×2 (06:29→11:24)
[2018-08-27] MEDS: BUDESONIDE (INHALATION) 0.5 MG/2 ML NEB NEB SCH (06:30)
--- NOTE | 2018-08-27 07:30 | NUR ---
Open Shift Note Received report on patient, awake and lying in bed. Patient shows no signs of distress at this time. Bed in lowest locked position, side rails up x2, and call light within reach. Will continue to monitor.
--- NOTE | 2018-08-27 07:35 | NUR ---
Closing Note Patient lying in bed, eyes closed, respirations even and unlabored, appears asleep. No s/s of distress. Bed in lowest locked position, side rails up x2, call light within reach. Care endorsed to dayshift RN.
[2018-08-27] MEDS: Ensure Enlive Chocolate 8oz Bottle PO SCH (08:00)
[2018-08-27 08:53] VITALS: BP 106/65
[2018-08-27] MEDS: cefTRIAXone 1GM/50ML D5W 50 ML IV SCH (09:47)
[2018-08-27] MEDS: PANTOPRAZOLE 40 MG/10 ML VIAL IV SCH (09:47)
[2018-08-27] MEDS: AZITHROMYCIN 500MG/ 250ML 250 ML IV SCH (09:47)
[2018-08-27] MEDS: ENOXAPARIN SOD 40 MG/0.4 ML SYRINGE SC SCH (09:48)
[2018-08-27] MEDS ORDERED: methylPREDNISolone SOD SUCC 40 MG/ML VL IV SCH (10:00)
[2018-08-27 13:17] VITALS: BP 106/65
[2018-08-27 13:26] VITALS: BP 111/68
--- NOTE | 2018-08-27 14:18 | NUR ---
Discharged Discharge instructions given as ordered. Encourage to follow up with PMD as instructed. All questions and concerns addressed. Patient verbalized understanding. Medication reconciliation form completed and copy given to patient. Home medications held in Pharmacy returned to patient. IV removed with catheter intact, pressure dressing applied. Patient taken to vehicle via wheelchair with all personal belongings, accompanied by staff. No distress noted at time of departure.
== END 2018-08-27 14:16 | disposition home or self-care (01) | DRG 189 ==
LOC: ER 08:38 → EDBD 08:38 → OVERFLOW 19:57 → CENTRAL 20:55
PROVIDERS: ADMIT Nurse Practitioner Acute Care; ATTEND Internal Medicine
DX: J96.20 Acute and chronic respiratory failure, unspecified whether with hypoxia or hypercapnia (principal); J44.1 Chronic obstructive pulmonary disease with (acute) exacerbation; I10 Essential (primary) hypertension; E11.9 Type 2 diabetes mellitus without complications; M81.0 Age-related osteoporosis without current pathological fracture; G89.29 Other chronic pain; M54.9 Dorsalgia, unspecified; N50.3 Cyst of epididymis; N44.2 Benign cyst of testis; Z99.81 Dependence on supplemental oxygen; Z53.20 Procedure and treatment not carried out because of patient's decision for unspecified reasons; Z90.49 Acquired absence of other specified parts of digestive tract
CPT/HCPCS: 36415; 71045; 76870; 80048; 80053; 81001; 83036; 83735; 84484; 85025; 87081; 87804; 93005; 94640; 94761; 96365; 96375; C9113; G0378; J0696

== ENCOUNTER 2018-10-20 15:57 | Emergency (ER) | payer OTHER, MEDICAID ==
[~2018-10-20] VITALS: Ht 177.8 cm; Wt 95.3 kg
[~2018-10-20 15:57] MED LIST changes: +ALBUAER3 IN; +FLUT250M2 IN; +HYDR-392 PO; -HYDR-4683 PO
[2018-10-20] MEDS: ALBUTEROL SULF 2.5 MG/0.5ML(0.5%) NEB SOLN HHN ONE (16:42)
[2018-10-20] MEDS: IPRATROPIUM BROM 0.5 MG/2.5ML INH SOL HHN ONE (16:42)
[2018-10-20] MEDS: methylPREDNISolone SOD SUCC 125 MG/2 ML VL IV ONE (16:48)
[2018-10-20 17:13] LABS: Hemoglobin 14.4 g/dL (13.5-17.5); Mean Corpuscular Hgb Conc. 32.7 g/dL (32.0-36.0); Mean Corpuscular Volume 88.9 fL (80.0-100.0); Platelet Count (auto) 331 10^3/uL (140-450); Red Blood Cells 4.95 10^6/uL (4.5-5.90); Red Cell Distribution Width 14.4 % (11.8-14.3); White Blood Cell 7.9 10^3/uL (4.4-10.8)
[2018-10-20 17:19] LABS: Alanine Aminotransferase 17 U/L (16-61); Albumin 3.7 g/dL (3.4-5.0); Anion Gap 9 (5-15); Aspartate Aminotransferase 13 U/L (15-37); BUN/Creatinine Ratio 20.2; Blood Urea Nitrogen 20 mg/dL (7-18); Calcium 9.2 mg/dL (8.5-10.1); Carbon Dioxide 27 mmol/L (21-32); Chloride 112 mmol/L (98-107); GFR African American 93 mL/min; GFR Non-African American 77 mL/min; Glucose 150 mg/dL (74-106); Potassium 3.7 mmol/L (3.5-5.1); Sodium 148 mmol/L (136-145)
[2018-10-20 17:20] LABS: Band Neutrophils % (manual) 0; Basophils % (manual) 0 (0.0-2.0); Blast Cells 0; Metamyelocytes % 0; Myelocytes % 0; Promyelocytes % 0; Reactive Lymphocytes 0
[2018-10-20 17:24] LABS: Alkaline Phosphatase 106 U/L (45-117); Bilirubin, Total 1.1 mg/dL (0.2-1.0); Total Protein 7.4 g/dL (6.4-8.2)
[2018-10-20 18:30] LABS: Eosinophils % (manual) 26 (0-7); Lymphocytes % (manual) 16 (10.0-50.0); Monocytes % (manual) 8 (0-12)
[2018-10-20 21:00] VITALS: BP 140/90
== END 2018-10-20 20:31 | disposition home or self-care (01) ==
LOC: EDBD 15:57 → ER 15:57
DX: J44.1 Chronic obstructive pulmonary disease with (acute) exacerbation (principal); R06.03 Acute respiratory distress; I10 Essential (primary) hypertension
CPT/HCPCS: 36415; 71045; 80053; 83605; 83735; 83880; 84484; 85007; 85027; 87040; 93005; 94640; 94761; 96374; 99284; J2930; J7611; J7644

== ENCOUNTER 2018-12-11 10:00 | Emergency (ER) | payer OTHER, MEDICAID ==
[~2018-12-11] VITALS: Ht 172.7 cm; Wt 69.9 kg
[~2018-12-11 10:00] MED LIST changes: +ASPI81CH43 PO
[2018-12-11] MEDS ORDERED: methylPREDNISolone SOD SUCC 125 MG/2 ML VL ONE (10:04)
[2018-12-11] MEDS ORDERED: methylPREDNISolone SOD SUCC 125 MG/2 ML VL IV ONE (10:15)
[2018-12-11] MEDS ORDERED: IPRATROPIUM BROM 0.5 MG/2.5ML INH SOL NEB ONE (10:15)
[2018-12-11] MEDS ORDERED: ALBUTEROL SULF 2.5 MG/0.5ML(0.5%) NEB SOLN NEB ONE ×3 (10:15)
[2018-12-11 10:20] LABS: Basophils # (auto) 0 uL; Basophils % (auto) 0.3 % (0.0-2.0); Eosinophils % (auto) 12.3 % (0.0-7.0); Hematocrit 43.2 % (41.0-53.0); Hemoglobin 14.3 g/dL (13.5-17.5); Lymphocytes # (auto) 1.1 uL; Lymphocytes % (auto) 13.8 % (10.0-50.0); Mean Corpuscular Hemoglobin 29.6 pg (28.0-32.0); Mean Corpuscular Hgb Conc. 33.1 g/dL (32.0-36.0); Mean Corpuscular Volume 89.5 fL (80.0-100.0); Monocytes # (auto) 0.6 uL; Monocytes % (auto) 7.6 % (0.0-12.0); Neutrophils # (auto) 5.3 uL; Platelet Count (auto) 337 10^3/uL (140-450); Red Blood Cells 4.83 10^6/uL (4.5-5.90); Red Cell Distribution Width 14.5 % (11.8-14.3); White Blood Cell 8.1 10^3/uL (4.4-10.8)
[2018-12-11 10:36] LABS: Albumin 3.9 g/dL (3.4-5.0); Anion Gap 4 (5-15); Aspartate Aminotransferase 16 U/L (15-37); Blood Urea Nitrogen 16 mg/dL (7-18); Calcium 9.4 mg/dL (8.5-10.1); Carbon Dioxide 30 mmol/L (21-32); Chloride 106 mmol/L (98-107); Glucose 178 mg/dL (74-106); Magnesium 2.5 mg/dL (1.6-2.6); Potassium 3.7 mmol/L (3.5-5.1); Sodium 140 mmol/L (136-145)
[2018-12-11 10:41] LABS: Alanine Aminotransferase 24 U/L (16-61); Alkaline Phosphatase 108 U/L (45-117); BUN/Creatinine Ratio 16.2; Bilirubin, Total 0.9 mg/dL (0.2-1.0); GFR African American 93 mL/min; GFR Non-African American 77 mL/min; Total Protein 7.5 g/dL (6.4-8.2)
[2018-12-11 12:00] VITALS: BP 105/57
[2018-12-11] MEDS ORDERED: SODIUM CHLORIDE 0.9% 1,000 ML IV ONE (12:08)
[2018-12-11 15:04] VITALS: BP 97/54
== END 2018-12-11 15:26 | disposition short-term general hospital (02) ==
LOC: EDBD 10:00 → ER 10:14
DX: J44.1 Chronic obstructive pulmonary disease with (acute) exacerbation (principal); R06.03 Acute respiratory distress; I10 Essential (primary) hypertension
CPT/HCPCS: 36415; 36600; 71045; 80053; 82805; 83735; 83880; 84484; 85025; 93005; 94644; 94660; 96374; 99291; J2930; J7030; J7611; J7644

== ENCOUNTER 2019-01-22 23:50 | Emergency (ER) | payer OTHER, MEDICAID ==
[~2019-01-22] VITALS: Ht 172.7 cm; Wt 67.1 kg
[~2019-01-22 23:50] MED LIST changes: -AZIT500T4 PO; +AZIT500T66 PO
[2019-01-23 01:07] LABS: Basophils # (auto) 0 uL; Basophils % (auto) 0.4 % (0.0-2.0); Eosinophils # (auto) 0.7 uL; Eosinophils % (auto) 9.8 % (0.0-7.0); Hematocrit 35.6 % (41.0-53.0); Hemoglobin 11.9 g/dL (13.5-17.5); Lymphocytes # (auto) 1.5 uL; Lymphocytes % (auto) 21.4 % (10.0-50.0); Mean Corpuscular Hemoglobin 29.5 pg (28.0-32.0); Mean Corpuscular Hgb Conc. 33.3 g/dL (32.0-36.0); Mean Corpuscular Volume 88.3 fL (80.0-100.0); Monocytes # (auto) 0.6 uL; Monocytes % (auto) 8.7 % (0.0-12.0); Neutrophils # (auto) 4.2 uL; Neutrophils % (auto) 59.7 % (37.0-80.0); Platelet Count (auto) 281 10^3/uL (140-450); Red Blood Cells 4.04 10^6/uL (4.5-5.90); Red Cell Distribution Width 14.1 % (11.8-14.3)
[2019-01-23 01:24] LABS: Albumin 3.7 g/dL (3.4-5.0); Anion Gap 9 (5-15); Blood Urea Nitrogen 17 mg/dL (7-18); Calcium 8.9 mg/dL (8.5-10.1); Carbon Dioxide 26 mmol/L (21-32); Chloride 108 mmol/L (98-107); Glucose 125 mg/dL (74-106); Potassium 3.5 mmol/L (3.5-5.1); Sodium 143 mmol/L (136-145)
[2019-01-23 01:26] LABS: Alanine Aminotransferase 18 U/L (16-61); Aspartate Aminotransferase 18 U/L (15-37); BUN/Creatinine Ratio 19.5; GFR African American 108 mL/min; GFR Non-African American 90 mL/min
[2019-01-23 01:32] LABS: Alkaline Phosphatase 84 U/L (45-117); Bilirubin, Total 0.9 mg/dL (0.2-1.0); Total Protein 6.7 g/dL (6.4-8.2)
[2019-01-23] MEDS ORDERED: ALBUTEROL SULF 2.5 MG/0.5ML(0.5%) NEB SOLN ONE (03:56)
[2019-01-23] MEDS ORDERED: IPRATROPIUM BROM 0.5 MG/2.5ML INH SOL ONE (03:56)
[2019-01-23] MEDS ORDERED: IPRATROPIUM BROM 0.5 MG/2.5ML INH SOL NEB ONE (04:00)
[2019-01-23] MEDS ORDERED: ALBUTEROL SULF 2.5 MG/0.5ML(0.5%) NEB SOLN NEB ONE (04:00)
[2019-01-23 06:05] VITALS: BP 108/62
== END 2019-01-23 06:43 | disposition home or self-care (01) ==
LOC: EDBD 23:50 → ER 23:59
DX: J96.11 Chronic respiratory failure with hypoxia (principal); J44.9 Chronic obstructive pulmonary disease, unspecified; I10 Essential (primary) hypertension; Z87.891 Personal history of nicotine dependence
CPT/HCPCS: 36415; 71045; 80053; 83880; 84484; 85025; 93005; 94761; 99284; J7611; J7644

== ENCOUNTER 2019-02-07 08:22 | Emergency (ER) | payer OTHER, MEDICAID ==
[~2019-02-07] VITALS: Ht 177.8 cm; Wt 68.0 kg
[2019-02-07] MEDS ORDERED: SODIUM CHLORIDE 0.9% 1,000 ML IV ONE (08:57)
[2019-02-07] MEDS ORDERED: methylPREDNISolone SOD SUCC 125 MG/2 ML VL IV ONE (09:00)
[2019-02-07 09:02] LABS: Basophils # (auto) 0 uL; Basophils % (auto) 0.3 % (0.0-2.0); Eosinophils # (auto) 1.5 uL; Hematocrit 40.9 % (41.0-53.0); Hemoglobin 13.8 g/dL (13.5-17.5); Lymphocytes # (auto) 1.4 uL; Lymphocytes % (auto) 18.7 % (10.0-50.0); Mean Corpuscular Hemoglobin 30.2 pg (28.0-32.0); Mean Corpuscular Hgb Conc. 33.6 g/dL (32.0-36.0); Mean Corpuscular Volume 89.7 fL (80.0-100.0); Monocytes # (auto) 0.5 uL; Monocytes % (auto) 6.8 % (0.0-12.0); Neutrophils # (auto) 4.3 uL; Neutrophils % (auto) 55.4 % (37.0-80.0); Nucleated Red Blood Cells % 0.1 %; Platelet Count (auto) 322 10^3/uL (140-450); Red Blood Cells 4.57 10^6/uL (4.5-5.90); Red Cell Distribution Width 14.3 % (11.8-14.3); White Blood Cell 7.7 10^3/uL (4.4-10.8)
[2019-02-07 09:04] LABS: Eosinophils % (auto) 18.8 % (0.0-7.0)
[2019-02-07 09:18] LABS: Albumin 3.8 g/dL (3.4-5.0); Anion Gap 5 (5-15); BUN/Creatinine Ratio 15.6; Blood Urea Nitrogen 14 mg/dL (7-18); Calcium 9.5 mg/dL (8.5-10.1); Carbon Dioxide 31 mmol/L (21-32); Chloride 106 mmol/L (98-107); GFR African American 104 mL/min; GFR Non-African American 86 mL/min; Glucose 142 mg/dL (74-106); Magnesium 2.4 mg/dL (1.6-2.6); Sodium 142 mmol/L (136-145)
[2019-02-07 09:25] LABS: Alanine Aminotransferase 15 U/L (16-61); Alkaline Phosphatase 95 U/L (45-117); Aspartate Aminotransferase 11 U/L (15-37); Bilirubin, Total 0.9 mg/dL (0.2-1.0); Total Protein 7.2 g/dL (6.4-8.2)
[2019-02-07] MEDS ORDERED: IOHEXOL 350 MG/ML 100ML IJ ONE (10:33)
[2019-02-07] MEDS ORDERED: AZITHROMYCIN 500MG/ 250ML 250 ML IV ONE (14:00)
[2019-02-07 16:00] VITALS: BP 119/65
== END 2019-02-07 16:29 | disposition left against medical advice (07) ==
LOC: ER 08:22 → EDBD 08:22 → ER 16:29
DX: J44.1 Chronic obstructive pulmonary disease with (acute) exacerbation (principal); R06.03 Acute respiratory distress; R73.9 Hyperglycemia, unspecified; I10 Essential (primary) hypertension; Z53.29 Procedure and treatment not carried out because of patient's decision for other reasons
CPT/HCPCS: 36415; 71045; 71275; 80053; 83735; 83880; 84443; 84484; 85025; 85379; 93005; 94761; 96365; 96375; 99284; J0456; J2930; J7030; Q9967

== ENCOUNTER 2022-05-28 08:09 | Inpatient (IN) | payer OTHER, MEDICAID ==
[~2022-05-28] VITALS: Ht 172.7 cm; Wt 52.7 kg
[2022-05-28] MEDS ORDERED: SODIUM CHLORIDE 0.9% 1,000 ML IV ONE ×2 (10:45)
[2022-05-28 11:10] LABS: Basophils # (auto) 0 10 ^3/uL (0-0.2); Basophils % (auto) 0.2 % (0.0-2.0); Eosinophils # (auto) 0 10 ^3/uL (0-0.8); Hematocrit 35.9 % (41.0-53.0); Hemoglobin 12.2 g/dL (13.5-17.5); Lymphocytes # (auto) 0.5 10 ^3/uL (0.4-5.4); Lymphocytes % (auto) 4.4 % (10.0-50.0); Mean Corpuscular Hemoglobin 28.8 pg (28.0-32.0); Mean Corpuscular Hgb Conc. 33.8 g/dL (32.0-36.0); Monocytes # (auto) 0.7 10 ^3/uL (0-1.3); Monocytes % (auto) 6.3 % (0.0-12.0); Neutrophils # (auto) 9.4 10 ^3/uL (1.6-8.6); Neutrophils % (auto) 89.1 % (37.0-80.0); Red Blood Cells 4.22 10^6/uL (4.5-5.90); Red Cell Distribution Width 14.4 % (11.8-14.3); White Blood Cell 10.5 10^3/uL (4.4-10.8)
[2022-05-28 11:35] LABS: Albumin 2.8 g/dL (3.4-5.0); Calcium 8.7 mg/dL (8.5-10.1); Potassium 3.9 mmol/L (3.5-5.1)
[2022-05-28 11:39] LABS: Bilirubin, Total 0.6 mg/dL (0.2-1.0)
[2022-05-28 12:29] LABS: BUN/Creatinine Ratio 15.5
[2022-05-28] MEDS ORDERED: ENOXAPARIN SOD 60 MG/0.6 ML SYRINGE SC ONE (13:00)
[2022-05-28] MEDS ORDERED: MORPHINE SULFATE INJ 2 MG/ml SYRG IV PRN ×2 (13:45)
[2022-05-28] MEDS ORDERED: NITROGLYCERIN 0.4 MG SL TAB SL PRN (13:45)
[2022-05-28] MEDS ORDERED: HYDROcodone-ACET 5/325MG TAB PO PRN (13:45)
[2022-05-28] MEDS: SODIUM CHLORIDE 0.9% 1,000 ML IV SCH (13:45)
[2022-05-28] MEDS ORDERED: DOCUSATE SOD 100 MG CAP PO PRN (13:45)
[2022-05-28] MEDS ORDERED: ONDANSETRON HCL 4 MG/2 ML VIAL IV PRN (13:45)
[2022-05-28] MEDS ORDERED: ACETAMINOPHEN 325 MG TAB PO PRN (13:45)
[2022-05-28 16:52] LABS: Urine Bacteria NONE SEEN /hpf (None Seen); Urine Blood Negative /uL (Negative); Urine Mucus FEW (None Seen); Urine Specific Gravity 1.032 (1.001-1.035); Urine WBC 11 /hpf (0 - 3)
[2022-05-28] MEDS: ATORVASTATIN 20 MG TAB PO SCH (21:54)
[2022-05-28] MEDS: PANTOPRAZOLE 40 MG/10 ML VIAL INJ IV SCH (21:55)
[2022-05-29 06:38] LABS: Basophils # (auto) 0 10 ^3/uL (0-0.2); Basophils % (auto) 0.2 % (0.0-2.0); Eosinophils # (auto) 0 10 ^3/uL (0-0.8); Eosinophils % (auto) 0.4 % (0.0-7.0); Hematocrit 31.5 % (41.0-53.0); Hemoglobin 10.5 g/dL (13.5-17.5); Lymphocytes # (auto) 1.1 10 ^3/uL (0.4-5.4); Lymphocytes % (auto) 10.7 % (10.0-50.0); Mean Corpuscular Hemoglobin 28.5 pg (28.0-32.0); Mean Corpuscular Hgb Conc. 33.5 g/dL (32.0-36.0); Monocytes # (auto) 0.8 10 ^3/uL (0-1.3); Neutrophils % (auto) 80.7 % (37.0-80.0); Red Cell Distribution Width 14.3 % (11.8-14.3); White Blood Cell 9.9 10^3/uL (4.4-10.8)
[2022-05-29 06:54] LABS: Albumin 2.3 g/dL (3.4-5.0); Calcium 8.5 mg/dL (8.5-10.1); Potassium 4.3 mmol/L (3.5-5.1)
[2022-05-29 06:57] LABS: Total Protein 5.5 g/dL (6.4-8.2)
[2022-05-29] MEDS: SODIUM CHLORIDE 0.9% 1,000 ML IV SCH (07:22)
[2022-05-29 09:40] VITALS: BP 91/48
[2022-05-29] MEDS: ASPirin 81 mg TAB PO SCH (10:30)
[2022-05-29] MEDS: PANTOPRAZOLE 40 MG/10 ML VIAL INJ IV SCH (10:30)
[2022-05-29] MEDS ORDERED: cefTRIAXone 1GM/50ML D5W 50 ML IV ONE (11:00)
[2022-05-29] MEDS: ENOXAPARIN SOD 40 MG/0.4 ML SYRINGE SC SCH (11:35)
[2022-05-29] MEDS: D5W/SOD CHLO 0.9% 1,000 ML IV SCH (15:31)
[2022-05-29 17:50] VITALS: BP 136/74
[2022-05-29] MEDS: ATORVASTATIN 20 MG TAB PO SCH (21:40)
[2022-05-29 21:48] VITALS: BP 98/46
[2022-05-30] MEDS: D5W/SOD CHLO 0.9% 1,000 ML IV SCH ×2 (01:23→06:00)
[2022-05-30 05:00] VITALS: BP 131/56
[2022-05-30 09:00] VITALS: BP 119/62
[2022-05-30] MEDS: ASPirin 81 mg TAB PO SCH (10:35)
[2022-05-30] MEDS: PANTOPRAZOLE 40 MG/10 ML VIAL INJ IV SCH (10:35)
[2022-05-30] MEDS: ENOXAPARIN SOD 40 MG/0.4 ML SYRINGE SC SCH (10:35)
[2022-05-30] MEDS: cefTRIAXone 1GM/50ML D5W 50 ML IV SCH (10:36)
[2022-05-30 13:00] VITALS: BP 107/55
[2022-05-30 17:00] VITALS: BP 99/59
[2022-05-30] MEDS: ATORVASTATIN 20 MG TAB PO SCH (21:35)
[2022-05-30 22:00] VITALS: BP 103/55
[2022-05-31 05:30] VITALS: BP 116/53
[2022-05-31] MEDS: D5W/SOD CHLO 0.9% 1,000 ML IV SCH ×2 (06:53→06:55)
[2022-05-31 09:00] VITALS: BP 105/47
[2022-05-31] MEDS: cefTRIAXone 1GM/50ML D5W 50 ML IV SCH (09:00)
[2022-05-31] MEDS ORDERED: CIPR-173 PO (09:06)
[2022-05-31 09:24] VITALS: BP 117/67
[2022-05-31 13:46] VITALS: BP 101/65
[2022-05-31] MEDS: ENOXAPARIN SOD 40 MG/0.4 ML SYRINGE SC SCH (15:23)
[2022-05-31] MEDS: ASPirin 81 mg TAB PO SCH (15:23)
== END 2022-05-31 15:06 | disposition home or self-care (01) | DRG 280 ==
LOC: EDBD 08:09 → ER 08:09 → TELE 13:49 → TELE-EAST 05-29 09:43
PROVIDERS: ADMIT Nurse Practitioner Family; ATTEND Family Medicine
DX: I21.4 Non-ST elevation (NSTEMI) myocardial infarction (principal); E43 Unspecified severe protein-calorie malnutrition; G93.41 Metabolic encephalopathy; J44.1 Chronic obstructive pulmonary disease with (acute) exacerbation; N39.0 Urinary tract infection, site not specified; Z68.1 Body mass index [BMI] 19.9 or less, adult; I10 Essential (primary) hypertension; R62.7 Adult failure to thrive; Z20.822 Contact with and (suspected) exposure to COVID-19; Z74.01 Bed confinement status; I95.9 Hypotension, unspecified
CPT/HCPCS: 36415; 70450; 71045; 80053; 81001; 82962; 83036; 83880; 84484; 85025; 87086; 87426; 93005; 93306; 96360; 96361; 96372; C9113; G0378; J0696; J2405; J7042

== ENCOUNTER 2022-06-01 11:59 | Inpatient (IN) | payer OTHER, MEDICAID ==
[~2022-06-01] VITALS: Ht 180.3 cm; Wt 51.1 kg
[~2022-06-01 11:59] MED LIST changes: +CIPR-173 PO
[2022-06-01 13:37] LABS: Basophils # (auto) 0 10 ^3/uL (0-0.2); Eosinophils # (auto) 0 10 ^3/uL (0-0.8); Eosinophils % (auto) 0.1 % (0.0-7.0); Hematocrit 34.3 % (41.0-53.0); Hemoglobin 11.2 g/dL (13.5-17.5); Lymphocytes # (auto) 0.7 10 ^3/uL (0.4-5.4); Lymphocytes % (auto) 7.1 % (10.0-50.0); Mean Corpuscular Hemoglobin 28.1 pg (28.0-32.0); Mean Corpuscular Hgb Conc. 32.6 g/dL (32.0-36.0); Mean Corpuscular Volume 86.2 fL (80.0-100.0); Monocytes # (auto) 0.7 10 ^3/uL (0-1.3); Monocytes % (auto) 6.8 % (0.0-12.0); Red Blood Cells 3.97 10^6/uL (4.5-5.90); Red Cell Distribution Width 14.2 % (11.8-14.3); White Blood Cell 10.4 10^3/uL (4.4-10.8)
[2022-06-01 13:55] LABS: Potassium 4.3 mmol/L (3.5-5.1)
[2022-06-01 14:03] LABS: Albumin 2.8 g/dL (3.4-5.0); BUN/Creatinine Ratio 30.3; Bilirubin, Total 0.8 mg/dL (0.2-1.0); Calcium 8.5 mg/dL (8.5-10.1)
[2022-06-01 15:11] LABS: Urine Bacteria NONE SEEN /hpf (None Seen); Urine Blood 1+ /uL (Negative); Urine Mucus FEW (None Seen); Urine Specific Gravity 1.022 (1.001-1.035); Urine WBC 6 /hpf (0 - 3)
[2022-06-01] MEDS ORDERED: ACETAMINOPHEN 325 MG TAB PO PRN (20:15)
[2022-06-01] MEDS ORDERED: PANTOPRAZOLE 40 MG TAB PO ONE (20:45)
[2022-06-01] MEDS ORDERED: NITROGLYCERIN 0.4 MG SL TAB SL PRN (21:00)
[2022-06-01] MEDS ORDERED: MORPHINE SULFATE INJ 2 MG/ml SYRG IV PRN (21:00)
[2022-06-01 21:01] LABS: Cholesterol 119 mg/dL (< 200)
[2022-06-01 21:04] LABS: HDL Cholesterol 50 mg/dL (40-59); LDL Cholesterol 62 mg/dL (< 100); Triglycerides 56 mg/dL (< 150)
[2022-06-01 21:49] LABS: INR 1.08 (0.9-1.15)
[2022-06-01] MEDS: SODIUM CHLORIDE 0.9% 1,000 ML IV SCH (21:50)
[2022-06-01] MEDS: ASCORBIC ACID 500 MG TAB PO SCH (22:26)
[2022-06-02 07:18] LABS: BUN/Creatinine Ratio 27.5; Calcium 7.7 mg/dL (8.5-10.1); Potassium 3.5 mmol/L (3.5-5.1)
[2022-06-02 07:21] LABS: Bilirubin, Total 0.8 mg/dL (0.2-1.0); Total Protein 4.6 g/dL (6.4-8.2)
[2022-06-02 07:41] LABS: Basophils # (auto) 0 10 ^3/uL (0-0.2); Basophils % (auto) 0.2 % (0.0-2.0); Eosinophils # (auto) 0.1 10 ^3/uL (0-0.8); Eosinophils % (auto) 0.6 % (0.0-7.0); Hematocrit 26.9 % (41.0-53.0); Lymphocytes # (auto) 1.2 10 ^3/uL (0.4-5.4); Lymphocytes % (auto) 14.6 % (10.0-50.0); Mean Corpuscular Hemoglobin 28.8 pg (28.0-32.0); Mean Corpuscular Hgb Conc. 33.6 g/dL (32.0-36.0); Mean Corpuscular Volume 85.7 fL (80.0-100.0); Monocytes # (auto) 0.8 10 ^3/uL (0-1.3); Monocytes % (auto) 9.6 % (0.0-12.0); Neutrophils # (auto) 6.2 10 ^3/uL (1.6-8.6); Nucleated Red Blood Cells % 0.1 %; Red Blood Cells 3.14 10^6/uL (4.5-5.90); Red Cell Distribution Width 13.6 % (11.8-14.3); White Blood Cell 8.2 10^3/uL (4.4-10.8)
[2022-06-02] MEDS: SODIUM CHLORIDE 0.9% 1,000 ML IV SCH (08:50)
[2022-06-02] MEDS: PANTOPRAZOLE 40 MG TAB PO SCH (09:36)
[2022-06-02] MEDS: MULTIPLE VITAMIN TAB PO SCH (09:36)
[2022-06-02] MEDS: ASCORBIC ACID 500 MG TAB PO SCH (09:36)
[2022-06-02] MEDS: ENOXAPARIN SOD 40 MG/0.4 ML SYRINGE SC SCH (09:37)
[2022-06-02] MEDS ORDERED: ZINC SULFATE 220mg CAP or TAB PO SCH (10:00)
[2022-06-02] MEDS ORDERED: cefTRIAXone 1GM/50ML D5W 50 ML IV ONE (13:45)
[2022-06-02] MEDS ORDERED: HYDROcodone-ACET 5/325MG TAB PO PRN (13:45)
[2022-06-02] MEDS ORDERED: ASPirin 81 mg TAB PO ONE (13:45)
[2022-06-02 18:10] VITALS: BP 113/55
[2022-06-02] MEDS: IPRATROPIUM BROM 0.5 MG/2.5ML INH SOL NEB SCH (19:18)
[2022-06-02] MEDS: ALBUTEROL MEDNEB 2.5 mg/3ml NEB NEB SCH (19:18)
[2022-06-02] MEDS: ATORVASTATIN 20 MG TAB PO SCH (22:00)
[2022-06-02 22:19] LABS: Alcohol, Urine < 3.0 mg/dL (0-10); Amphetamine Screen, Urine NEGATIVE (NEGATIVE); Barbiturate Scree,Urine NEGATIVE (NEGATIVE); Benzodiazephine Screen, Urine NEGATIVE (NEGATIVE); Cannabinoid Screen, Urine NEGATIVE (NEGATIVE); Cocaine Screen, Urine NEGATIVE (NEGATIVE); Opiate Scree,Urine NEGATIVE (NEGATIVE); Phencyclidine Screen, Urine NEGATIVE (NEGATIVE)
[2022-06-02 22:33] LABS: Urine Bacteria NONE SEEN /hpf (None Seen); Urine Blood 3+ /uL (Negative); Urine Hyaline Cast FEW /lpf (0 - 2); Urine Mucus FEW (None Seen); Urine Specific Gravity 1.021 (1.001-1.035); Urine WBC 38 /hpf (0 - 3)
[2022-06-02 23:02] VITALS: BP 93/51
[2022-06-03 08:00] VITALS: BP 109/61
[2022-06-03] MEDS: ALBUTEROL MEDNEB 2.5 mg/3ml NEB NEB SCH ×3 (08:02→19:47)
[2022-06-03] MEDS: IPRATROPIUM BROM 0.5 MG/2.5ML INH SOL NEB SCH ×3 (08:02→19:47)
[2022-06-03 09:00] VITALS: BP 109/61
[2022-06-03] MEDS: ASPirin 81 mg TAB PO SCH (11:01)
[2022-06-03] MEDS: ENOXAPARIN SOD 40 MG/0.4 ML SYRINGE SC SCH (11:01)
[2022-06-03] MEDS: PANTOPRAZOLE 40 MG TAB PO SCH (11:01)
[2022-06-03] MEDS: MULTIPLE VITAMIN TAB PO SCH (11:01)
[2022-06-03] MEDS: cefTRIAXone 1GM/50ML D5W 50 ML IV SCH (11:02)
[2022-06-03 14:02] VITALS: BP 91/40
[2022-06-03 16:49] VITALS: BP 98/51
[2022-06-03 20:00] VITALS: BP 109/61
[2022-06-03] MEDS: ATORVASTATIN 20 MG TAB PO SCH (21:06)
[2022-06-03 22:00] VITALS: BP 95/53
[2022-06-04 05:00] VITALS: BP 118/64
[2022-06-04] MEDS ORDERED: LORazepam 2MG/ML-1ML VIAL IM ONE (06:45)
[2022-06-04] MEDS ORDERED: HYDROcodone-ACET 5/325MG TAB PO PRN (06:45)
[2022-06-04] MEDS: ALBUTEROL MEDNEB 2.5 mg/3ml NEB NEB SCH ×2 (06:55→18:00)
[2022-06-04] MEDS: IPRATROPIUM BROM 0.5 MG/2.5ML INH SOL NEB SCH ×2 (06:55→18:45)
[2022-06-04 09:00] VITALS: BP 102/44
[2022-06-04] MEDS: cefTRIAXone 1GM/50ML D5W 50 ML IV SCH (09:30)
[2022-06-04] MEDS: ASPirin 81 mg TAB PO SCH (09:39)
[2022-06-04] MEDS: PANTOPRAZOLE 40 MG TAB PO SCH (09:39)
[2022-06-04] MEDS: MULTIPLE VITAMIN TAB PO SCH (09:40)
[2022-06-04] MEDS: ENOXAPARIN SOD 40 MG/0.4 ML SYRINGE SC SCH (09:41)
[2022-06-04] MEDS ORDERED: ALBUTEROL SULF 2.5 MG/0.5ML(0.5%) NEB SOLN ONE (11:34)
[2022-06-04 13:00] VITALS: BP 137/66
[2022-06-04] MEDS ORDERED: CYANOCOBALAMIN (B-12) 1000 MCG/1 ML VIAL IM ONE (15:15)
[2022-06-04 16:37] VITALS: BP 114/57
[2022-06-04] MEDS: ATORVASTATIN 20 MG TAB PO SCH (21:16)
[2022-06-04 22:00] VITALS: BP 95/47
[2022-06-05 05:00] VITALS: BP 98/53
[2022-06-05 09:00] VITALS: BP 92/44
[2022-06-05] MEDS ORDERED: CYANOCOBALAMIN 500 MCG TAB PO SCH (10:00)
[2022-06-05] MEDS: ENOXAPARIN SOD 40 MG/0.4 ML SYRINGE SC SCH (10:31)
[2022-06-05] MEDS: PANTOPRAZOLE 40 MG TAB PO SCH (10:32)
[2022-06-05] MEDS: ASPirin 81 mg TAB PO SCH (10:32)
[2022-06-05] MEDS: MULTIPLE VITAMIN TAB PO SCH (10:33)
[2022-06-05] MEDS: ALBUTEROL MEDNEB 2.5 mg/3ml NEB NEB SCH ×2 (11:05→14:45)
[2022-06-05] MEDS: IPRATROPIUM BROM 0.5 MG/2.5ML INH SOL NEB SCH ×2 (11:05→14:45)
[2022-06-05 12:17] VITALS: BP 92/44
[2022-06-05 13:00] VITALS: BP 98/49
== END 2022-06-05 15:00 | disposition hospice, home (50) | DRG 91 ==
LOC: EDBD 11:59 → ER 11:59 → TELE 21:05 → TELE-WESTW 06-02 21:57
PROVIDERS: ADMIT Nurse Practitioner Family; ATTEND Internal Medicine
DX: G92.8 Other toxic encephalopathy (principal); J96.00 Acute respiratory failure, unspecified whether with hypoxia or hypercapnia; N39.0 Urinary tract infection, site not specified; Z68.1 Body mass index [BMI] 19.9 or less, adult; E44.0 Moderate protein-calorie malnutrition; R62.7 Adult failure to thrive; D64.9 Anemia, unspecified; E66.01 Morbid (severe) obesity due to excess calories; E78.5 Hyperlipidemia, unspecified; F17.210 Nicotine dependence, cigarettes, uncomplicated; I10 Essential (primary) hypertension; J44.9 Chronic obstructive pulmonary disease, unspecified; E53.8 Deficiency of other specified B group vitamins; F03.90 Unspecified dementia, unspecified severity, without behavioral disturbance, psychotic disturbance, mood disturbance, and anxiety; I25.10 Atherosclerotic heart disease of native coronary artery without angina pectoris; Z51.5 Encounter for palliative care
CPT/HCPCS: 36415; 70450; 71045; 80053; 80061; 80307; 81001; 82607; 83605; 83735; 84443; 84484; 85025; 85610; 87086; 87426; 93005; 94640; G0378; J0696